=== PATIENT | female | born 1990 | race Hispanic/Latino ===

== ENCOUNTER 2019-02-06 06:44 | Day surgery (SDC) | payer MEDICAID ==
[2019-02-06] MEDS: NACL 0.9% 500 ML 500 ML IV SCH ×2 (07:57→09:29)
[2019-02-06] MEDS ORDERED: ECOTRIN PO ONE (08:00)
[2019-02-06 08:04] LABS: Basophils % (Auto) 0.8 % (0.0-1.8); Eosinophils # (Auto) 0.1 K/mm3 (0.0-0.4); Eosinophils % (Auto) 2.2 % (0.0-4.3); Hematocrit 39.4 % (30.3-42.9); Hemoglobin 13.4 gm/dl (10.1-14.3); Lymphocytes # (Auto) 1.7 K/mm3 (1.2-5.4); Lymphocytes % (Auto) 32.1 % (13.4-35.0); Mean Corpuscular HGB Conc 34 % (30-34); Mean Corpuscular Volume 84 fl (79-97); Monocytes # (Auto) 0.6 K/mm3 (0.0-0.8); Monocytes % (Auto) 11.5 % (0.0-7.3); Platelet Count 257 K/mm3 (140-440); Red Blood Count 4.71 M/mm3 (3.65-5.03); Red Cell Distribution Width 13.5 % (13.2-15.2)
[2019-02-06 08:14] LABS: INR 0.97 (0.87-1.13)
[2019-02-06 08:16] LABS: BUN/Creatinine Ratio 18; Blood Urea Nitrogen 11 mg/dL (7-17); Calcium 9.5 mg/dL (8.4-10.2); Hemolysis Index 8
[2019-02-06] MEDS ORDERED: ZOFRAN IV ONE (09:00)
[2019-02-06] MEDS ORDERED: VERSED ONE (09:03)
[2019-02-06] MEDS ORDERED: HEPARIN/NS 5000 UNIT/500ML(CATH LAB) 1,000 ML IR ONE (09:03)
[2019-02-06] MEDS ORDERED: HEPARIN 10,000 UNITS/10 ML ONE (09:03)
[2019-02-06] MEDS ORDERED: NITROGLYCERIN SYRINGE 3 ML ONE (09:04)
[2019-02-06] MEDS ORDERED: XYLOCAINE 2% INFILTRATI ONE (09:04)
[2019-02-06] MEDS ORDERED: CALAN ONE (09:04)
[2019-02-06] MEDS ORDERED: SUBLIMAZE ONE (09:04)
[2019-02-06 13:11] VITALS: BP 135/85
--- NOTE | 2019-02-06 14:16 | Cardiac Catherization Report ---
CARDIAC CATHETERIZATION REFERRING PHYSICIAN: Sreekanth Schneider MD INDICATION FOR PROCEDURE: The patient is a very pleasant 28-year-old female with recurrent chest pain. She has a very strong family history of premature heart disease with her father's side of the family with 6/6 with severe heart disease. She does not smoke, recurrent chest pain, albeit recent normal stress test, nonsmoker, although she has had exposure to secondhand smoke. Does not tolerate beta lilli due to baseline sinus bradycardia on baby aspirin due to recurrent chest pain she is referred for left heart catheterization. Her insurance did not cover cardiac CT. Risks, benefits, alternatives discussed at length prior to obtaining informed consent. PROCEDURE IN DETAIL: The patient was brought to catheterization lab in postoperative state, prepped and draped in sterile fashion. Gurjit's test in right hand was normal. A 2 mL of 2% lidocaine used to anesthetize the right wrist. A standard 6-[place]atian hydrophilic sheath used to cannulate the right radial artery via modified Seldinger technique. All exchanges were performed to exchange a J-tip guidewire. JL3.5 catheter used to engage the left main. No dampening or ventricularization. Cineangiography performed in all projections. JR4 catheter was used to cross the aortic valve under fluoroscopic guidance. Left ventriculography performed from 30 [place] and 30 [place] projections via hand injections, catheter flushed. Manual pullback performed with continuous pressure monitoring. Catheter used to engage the right coronary. No dampening or ventricularization. Cineangiography performed in all projections. JR4 catheter used to cross the aortic valve under fluoroscopic guidance. Next, due to recurrent chest pain aortography was performed. 5-[place]ian pigtail catheter used with the power injector in the [place] projection. Next, catheter removed from the body of wire, sheath removed. Manual pressure used to achieve hemostasis. DATA: Aortic pressure is 110/70, LV pressure is 110, LVEDP of 12 mmHg. Left ventriculography revealed normal systolic performance, estimated ejection fraction of 55-60%. No evidence of aortic stenosis. CORONARY ANATOMY: Right dominant system. Right coronary is a large vessel, courses AV groove, distally bifurcates in the posterior and posterolateral branch. No discrete stenosis noted. Left main without significant disease, bifurcates left anterior descending and left circumflex. Left circumflex, moderate sized vessel, courses AV groove as a large OM trunk moderate sized to AV groove circ. No significant disease. LAD is a moderate sized vessel, courses anterior intergroove, wraps around the apex, no significant disease noted. Root aortography reveals normal contour, no evidence of aortic insufficiency, dissection or penetrating aortic ulcer. Normal great vessel anatomy. I directly supervised the administration of moderate sedation from 9:27 a.m. to 9:50 a.m. There were no immediate complications. CONCLUSIONS: 1. No angiographic evidence of significant epicardial coronary disease in this right dominant system. 2. Normal left ventricular systolic performance, estimated ejection fraction of 55-60%. 3. No evidence of aortic stenosis. 4. Normal LVEDP. 5. Normal root aortography without evidence of dissection, penetrating aortic ulcer, aortic insufficiency. 6. The patient is clinically stable, chest pain free or chest pain is clearly noncardiac. Standard radial care. Continue aggressive primary and secondary prevention measures. Follow up with me in the office. JOB# [id number]
== END 2019-02-06 13:28 | disposition home or self-care (01) ==
LOC: CATHLABREC 06:44
PROVIDERS: ATTEND Internal Medicine
DX: R07.9 Chest pain, unspecified (principal); I10 Essential (primary) hypertension; F32.9 Major depressive disorder, single episode, unspecified; F41.9 Anxiety disorder, unspecified; Z80.8 Family history of malignant neoplasm of other organs or systems; Z83.49 Family history of other endocrine, nutritional and metabolic diseases; Z85.43 Personal history of malignant neoplasm of ovary; Z87.442 Personal history of urinary calculi; Z79.82 Long term (current) use of aspirin; Z79.899 Other long term (current) drug therapy; Z90.49 Acquired absence of other specified parts of digestive tract; Z98.890 Other specified postprocedural states; Z82.5 Family history of asthma and other chronic lower respiratory diseases; Z82.49 Family history of ischemic heart disease and other diseases of the circulatory system; Z86.73 Personal history of transient ischemic attack (TIA), and cerebral infarction without residual deficits; Z86.2 Personal history of diseases of the blood and blood-forming organs and certain disorders involving the immune mechanism
CPT/HCPCS: 36415; 80048; 81025; 85025; 85610; 85730; 93005; 93010; 93458; 96374; 99156; 99157; C1894; J1644; J2250; J2405; J3010; J7040; Q9967